=== PATIENT | male | born 1955 | race Caucasian/White ===

== ENCOUNTER → 2017-01-15 | Outpatient (CLI) | payer OTHER | LOC: BMCIMAGING 11:08 | PROVIDERS: ATTEND Emergency Medicine | DX: I82.511 Chronic embolism and thrombosis of right femoral vein (principal); I82.531 Chronic embolism and thrombosis of right popliteal vein ==

== ENCOUNTER 2018-06-30 10:57 | Emergency (ER) | payer BC, OTHER ==
--- NOTE | 2018-06-30 12:36 | EDPHY ---
HPI/HX/ROS/PE/MDM Narrative: CHIEF COMPLAINT: Irregular heart rate HISTORY OF PRESENT ILLNESS: The patient is an anticoagulated (Xarleto) 62 y/o male with a history of Factor V Leiden, PE's and DVT's complaining of an irregular heart rate onset last week. Around 8 years ago he had similar symptoms and saw Dr. Razo, tailer off. 8 years ago he had cardiac stress test without any significant findings; he did not wear a Halter Monitor at that time. Last week he developed an intermittent irregular heart rate in the afternoon. These episodes feel like an "extended sequence of heart beats". During the episode of irregular heart rate he feels lightheaded and nauseous. He denies chest pain, arm pain or jaw pain. He denies drinking more caffeine or alcohol than normal. He reports that due to prior DVT's his right leg is always swollen, but there have been no acute changes. He denies taking Aspirin. No fever, chills, shortness of breath, vomiting, diarrhea, urinary complaints, headache. REVIEW OF SYSTEMS: Aside from elements discussed in the HPI, a comprehensive 10-point review of systems was reviewed and is negative. PAST MEDICAL HISTORY: Factor V Leiden, PE (2002 and 2004), DVT's, hypertension SOCIAL HISTORY: Lives in [place], employed as a soft wear windows software engineer, VITAL SIGNS: Reviewed by me GENERAL: Well-developed, well-nourished, resting comfortably in no respiratory distress. HEENT: Atraumatic. Eyes: No icterus, no injection. Mouth: moist mucous membranes. No erythema or lesions. Neck: supple with no adenopathy. LUNGS: Clear to auscultation bilaterally, no wheezes, rhonchi or rales. CARDIAC: Regular rate and rhythm, no rubs, murmurs or gallops. ABDOMEN: Soft, nontender, nondistended, bowel sounds normal. BACK: No CVA tenderness. EXTREMITIES: No trauma. No edema. Range of motion is normal throughout. NEURO: Alert and oriented, grossly nonfocal. SKIN: Warm and dry, no rash. PSYCHIATRIC: Normal mentation, no agitation. Portions of this note were transcribed by a medical sales consultant. I personally performed a history, physical exam, medical decision making, and confirmed accuracy of information the transcribed note. ED Course: The patient is an anticoagulated (Xarleto) 62 y/o male with a history of Factor V Leiden, PE's and DVT's presenting with an intermittent irregular heart rate onset last week. Currently he is asymptomatic. Labs, EKG, and chest x-ray ordered. 1116: 12-LEAD EKG: Please see the full report in [facility]. My interpretation: Sinus bradycardia with a rate of 47, left ventricular hypertrophy. 1130: Patient's POC troponin is negative. 1246: Patient's chest x-ray reveals no acute findings. 1355: Reassessed patient and discussed his laboratory and imaging findings. I have advised him to follow up with a tailer off. Return precautions provided; patient is comfortable with this plan. 1419: I spoke with [facility] to order the patient a Holter Monitor and set him up for a follow up appointment at [facility]. MDM: Diff dx considered included but not limited to afib, aflutter, SVT, PACs, PVCs, electrolyte abnormalities, drug or alcohol use or withdrawl, anxiety. - Data Points Imaging Results: Impression: 1. No acute pulmonary disease. 2. Old right posterior eighth rib fracture. Dictated By: Miguel Malhotra Imaging: I viewed and interpreted images myself Laboratory Results: Laboratory Results 06/30/18 11:30 06/30/18 11:30 Point of Care Test Results: Chemistry 06/30/18 11:29 POC Troponin I 0.01 ng/mL ng/mL (0.00-0.08) General Time Seen by Provider: 06/30/18 12:20 Initial Vital Signs: Initial Vital Signs Temperature (C) 36.5 C 06/30/18 11:02 Heart Rate 58 L 06/30/18 11:02 Respiratory Rate 18 06/30/18 11:02 Blood Pressure 146/105 H 06/30/18 11:02 O2 Sat (%) 97 06/30/18 11:02 O2 Delivery Mode Room Air Allergies/Adverse Reactions: bacitracin [From Neosporin ([id number])] Allergy (Verified 10/30/15 12:29) bacitracin zinc [From Neosporin ([id number])] Allergy (Verified 10/30/15 12: 29) neomycin sulfate [From Neosporin ([id number]-heh-arban)] Allergy (Verified 10/30/15 12: 29) polymyxin B [From Neosporin ([id number])] Allergy (Verified 10/30/15 12:29) Home Medications: Medication Instructions Recorded Propranolol Sr 06/30/18 Xarelto 06/30/18 Departure - Departure Disposition: Home, Routine, Self-Care Clinical Impression: Palpitations Condition: Good Instructions: Heart Palpitations (ED) Additional Instructions: Please follow-up as soon as possible with [facility] for a Holter monitor. -- You been set up to have a Holter monitor placed on July 02 at 2: 15 p.m. In the afternoon. You will follow up with a tailer off following the Holter monitor. The if you develop worsening symptoms between today and , please return to the emergency department. Be sure you return if you developed a fever, worsening symptoms, especially symptoms associated with fainting, significant chest pain or shortness of breath, or other concerns. As we discussed, it is impossible to fully rule out heart disease as the cause of your chest pain in the emergency department. We would be happy to reevaluate you and observe you in the hospital at any time. Referrals: Chemo Ortiz MD [Primary Care Provider] - As per Instructions Harish Gentile MD [Medical Doctor] - As per Instructions Report Scribed for: Dannielle Mahajan Report Scribed by: Carmen Bhagat Date of Report: 06/30/18 Time of Report: 13:58
[2018-06-30 12:43] LABS: PLATELET COUNT 297 10^3/uL (150-400)
[2018-06-30 14:03] VITALS: BP 135/89
--- NOTE | 2018-06-30 23:20 | CPEKG ---
Test Reason : OPEN Blood Pressure : / mmHG Vent. Rate : 047 BPM Atrial Rate : 047 BPM P-R Int : 197 ms QRS Dur : 089 ms QT Int : 432 ms P-R-T Axes : 027 -02 -03 degrees QTc Int : 382 ms Sinus bradycardia Left ventricular hypertrophy Inferior infarct, old Anterior Q waves, possibly due to LVH Lateral leads are also involved Confirmed by Nicole Michelle ([id number]) on 06/30/2018 11:20:21 PM Referred By: Confirmed By:Nicole Michelle
== END 2018-06-30 14:53 | disposition home or self-care (01) ==
DX: R00.2 Palpitations (principal); Z79.01 Long term (current) use of anticoagulants
CPT/HCPCS: 84484-ER